=== PATIENT | female | born 1970 | race African-American/Black ===

== ENCOUNTER 2017-10-13 10:39 | Emergency (ER) | payer OTHER ==
[~2017-10-13] VITALS: Ht 165.1 cm; Wt 66.2 kg
[2017-10-13 10:45] VITALS: BP 124/68
[2017-10-13] MEDS ORDERED: VENTOLIN HFA 1818 GM INH (10:52)
[2017-10-13] MEDS ORDERED: CEPACOL SORETH1 EAC1 PO (11:07)
[2017-10-13] MEDS ORDERED: PENICILLIN V P500 MG PO (11:07)
== END 2017-10-13 11:20 | disposition home or self-care (01) ==
LOC: ER 10:39
DX: J02.0 Streptococcal pharyngitis (principal); H92.02 Otalgia, left ear; F17.210 Nicotine dependence, cigarettes, uncomplicated

== ENCOUNTER 2018-10-14 16:48 | Emergency (ER) | payer BC, OTHER ==
[~2018-10-14] VITALS: Ht 165.1 cm; Wt 60.8 kg
[~2018-10-14 16:48] MED LIST: CEPACOL SORETH1 EAC1 PO; PENICILLIN V P500 MG PO; VENTOLIN HFA 1818 GM INH
[2018-10-14] MEDS ORDERED: ESTROVEN ENERG1 EACH PO (18:21)
[2018-10-14] MEDS ORDERED: CLARITIN-D 121 EAC1 PO (19:06)
[2018-10-14] MEDS ORDERED: PREDNISONE 20 M20 MG PO (19:06)
[2018-10-14] MEDS ORDERED: VENTOLIN HFA 1818 GM INH (19:06)
[2018-10-14 19:14] VITALS: BP 124/69
== END 2018-10-14 19:15 | disposition home or self-care (01) ==
LOC: ER 16:48
DX: J45.909 Unspecified asthma, uncomplicated (principal); F17.210 Nicotine dependence, cigarettes, uncomplicated

== ENCOUNTER 2018-11-24 10:18 | Emergency (ER) | payer BC, OTHER ==
[~2018-11-24] VITALS: Ht 165.1 cm; Wt 64.4 kg
[~2018-11-24 10:18] MED LIST changes: +CLARITIN-D 121 EAC1 PO; +ESTROVEN ENERG1 EACH PO; +PREDNISONE 20 M20 MG PO
[2018-11-24 10:46] LABS: URINE BLOOD 3+ (Negative); URINE CLARITY CLOUDY; URINE COLOR YELLOW; URINE GLUCOSE-RANDOM* NEGATIVE (Negative); URINE KETONES NEGATIVE (Negative); URINE LEUKOCYTES-REFLEX NEGATIVE (Negative); URINE NITRITE-REFLEX NEGATIVE (Negative); URINE PROTEIN (DIPSTICK) TRACE (Negative); URINE SPECIFIC GRAVITY >= 1.030 (1.005-1.035); URINE UROBILINOGEN 0.2 E.U./dl (0.2-1.0)
[2018-11-24 10:49] LABS: ICTOTEST (BILI CONFIRMATORY) Negative (Negative); URINE BILIRUBIN NEGATIVE (Negative)
[2018-11-24 11:02] LABS: ABSOLUTE NEUTROPHILS 9.9 thou/uL (1.4-8.2); BASOPHILS 0.3 % (0.0-2.0); EOSINOPHILS 0.4 % (0.0-3.0); HEMATOCRIT 38.2 % (37.0-47.0); HEMOGLOBIN 13.1 gm/dL (12.0-15.0); LYMPHOCYTES 10.3 % (24.0-44.0); MCH 31.3 pg (26.0-34.0); MCHC 34.2 g/dL (28.0-37.0); MCV 91.6 fL (80.0-100.0); PLATELET COUNT 388 thou/uL (150-400); RBC 4.17 mil/uL (4.20-5.00); RDW 14.5 % (10.5-14.5); WBC 11.3 thou/uL (4.0-11.0)
[2018-11-24 11:14] LABS: CALCIUM 9.3 mg/dL (8.5-10.1); CREATININE 0.9 mg/dL (0.6-1.0); POTASSIUM 3.8 mmol/L (3.5-5.1)
[2018-11-24 11:20] LABS: CASTS None Seen /LPF (None Seen); SQUAMOUS 0-3 Few /LPF (0-3)
[2018-11-24 11:21] LABS: AMORPHOUS URATES Many /LPF (None Seen); BACTERIA-REFLEX 1-9 Few /HPF (None Seen); URINE RBC None Seen /HPF (0-2); URINE WBC-REFLEX None Seen /HPF (0-5)
[2018-11-24 11:21] LABS: TOTAL BILIRUBIN 0.3 mg/dL (<0.1-1.0)
[2018-11-24] MEDS ORDERED: OSELB75 PO (11:41)
[2018-11-24] MEDS ORDERED: ONDANSETRON HCL4 M2 PO (11:41)
[2018-11-24] MEDS ORDERED: CLARITIN10 MG PO (12:28)
[2018-11-24 12:33] VITALS: BP 128/77
== END 2018-11-24 12:45 | disposition home or self-care (01) ==
LOC: ER 10:18
PROVIDERS: Physician Assistant
DX: J11.1 Influenza due to unidentified influenza virus with other respiratory manifestations (principal); R11.2 Nausea with vomiting, unspecified; F17.210 Nicotine dependence, cigarettes, uncomplicated; J45.909 Unspecified asthma, uncomplicated

== ENCOUNTER 2018-11-29 09:47 | Emergency (ER) | payer BC, OTHER ==
[~2018-11-29] VITALS: Ht 165.1 cm; Wt 64.4 kg
[~2018-11-29 09:47] MED LIST changes: +CLARITIN10 MG PO; +ONDANSETRON HCL4 M2 PO; +OSELB75 PO
[2018-11-29 10:16] LABS: URINE BLOOD 2+ (Negative); URINE CLARITY CLOUDY; URINE COLOR YELLOW; URINE GLUCOSE-RANDOM* NEGATIVE (Negative); URINE KETONES NEGATIVE (Negative); URINE LEUKOCYTES-REFLEX NEGATIVE (Negative); URINE NITRITE-REFLEX NEGATIVE (Negative); URINE PROTEIN (DIPSTICK) TRACE (Negative); URINE SPECIFIC GRAVITY >= 1.030 (1.005-1.035); URINE UROBILINOGEN 0.2 E.U./dl (0.2-1.0)
[2018-11-29 10:18] LABS: ICTOTEST (BILI CONFIRMATORY) Negative (Negative); URINE BILIRUBIN NEGATIVE (Negative)
[2018-11-29 10:22] LABS: ABSOLUTE NEUTROPHILS 6.5 thou/uL (1.4-8.2); BASOPHILS 0.3 % (0.0-2.0); EOSINOPHILS 1.3 % (0.0-3.0); HEMATOCRIT 36.7 % (37.0-47.0); HEMOGLOBIN 12.4 gm/dL (12.0-15.0); LYMPHOCYTES 16.5 % (24.0-44.0); MCH 31.2 pg (26.0-34.0); MCHC 33.8 g/dL (28.0-37.0); MCV 92.2 fL (80.0-100.0); MONOCYTES 4.4 % (1.0-8.0); PLATELET COUNT 375 thou/uL (150-400); POLYS 77.5 % (36.0-66.0); RBC 3.98 mil/uL (4.20-5.00); RDW 14.6 % (10.5-14.5); WBC 8.3 thou/uL (4.0-11.0)
[2018-11-29 10:30] LABS: SQUAMOUS >10 Many /LPF (0-3)
[2018-11-29 10:31] LABS: CALCIUM OXALATE 4-10 Moderate /LPF (None Seen); CASTS None Seen /LPF (None Seen)
[2018-11-29 10:32] LABS: BACTERIA-REFLEX >30 Many /HPF (None Seen)
[2018-11-29 10:33] LABS: URINE RBC 3-10 Few /HPF (0-2); URINE WBC-REFLEX 0-5 Rare /HPF (0-5)
[2018-11-29 10:37] LABS: CALCIUM 8.7 mg/dL (8.5-10.1); POTASSIUM 3.7 mmol/L (3.5-5.1)
[2018-11-29 10:41] LABS: ALBUMIN 3.9 g/dL (3.4-5.0); TOTAL BILIRUBIN 0.1 mg/dL (<0.1-1.0); TOTAL PROTEIN 7.5 g/dL (6.4-8.2)
[2018-11-29] MEDS ORDERED: KEFLEX500 M1 PO (13:44)
[2018-11-29] MEDS ORDERED: PHENERGAN 25 MG25 M1 PO (13:44)
[2018-11-29] MEDS ORDERED: BUTALB-APAP-CA1 EACH PO (13:44)
[2018-11-29 13:58] VITALS: BP 117/68
== END 2018-11-29 14:00 | disposition home or self-care (01) ==
LOC: ER 09:47
PROVIDERS: Physician Assistant
DX: N39.0 Urinary tract infection, site not specified (principal); J11.1 Influenza due to unidentified influenza virus with other respiratory manifestations; F17.210 Nicotine dependence, cigarettes, uncomplicated; J45.909 Unspecified asthma, uncomplicated

== ENCOUNTER 2019-04-25 18:10 | Emergency (ER) | payer BC, OTHER ==
[~2019-04-25] VITALS: Ht 165.1 cm; Wt 61.2 kg
[~2019-04-25 18:10] MED LIST changes: +BUTALB-APAP-CA1 EACH PO; +KEFLEX500 M1 PO; +PHENERGAN 25 MG25 M1 PO
[2019-04-25] MEDS ORDERED: PAXIL 20 MG TAB20 M1 PO (18:25)
[2019-04-25] MEDS ORDERED: LIDOCAINE PAIN1 EACH TRANSDERM (21:00)
[2019-04-25 21:06] VITALS: BP 121/70
== END 2019-04-25 21:07 | disposition home or self-care (01) ==
LOC: ER 18:10
DX: M54.5 Low back pain (principal); F17.210 Nicotine dependence, cigarettes, uncomplicated; W10.9XXA Fall (on) (from) unspecified stairs and steps, initial encounter; Y93.01 Activity, walking, marching and hiking; Y92.89 Other specified places as the place of occurrence of the external cause; Y99.8 Other external cause status